=== PATIENT | female | born 2000 | race Caucasian/White ===

== ENCOUNTER → 2025-04-28 11:31 | Emergency (ER) | payer OTHER, SELFPAY ==
[2025-04-28 11:36] VITALS: BP 143/99
[2025-04-28 11:49] LABS: Hematocrit 41.5 % (37.0-47.0); Hemoglobin 13.8 g/dL (12.0-16.0); Mean Corp Hgb Conc. 33.3 g/dL (33.0-37.0); Mean Corpuscular Volume 83.2 fL (81.0-99.0); Nucleated Red Blood Cells % 0 %; Platelet Count 330 10^3/uL (130-400); Red Cell Dist. Width 13.0 % (11.5-14.5)
[2025-04-28 12:07] LABS: HCG, Serum Qualitative Screen Negative
[2025-04-28 12:12] LABS: ALT (SGPT) 24 U/L (0-35); AST (SGOT) 23 U/L (14-36); Albumin 4.6 g/dl (3.5-5.0); Alkaline Phosphatase 126 U/L (38-126); Blood Urea Nitrogen 10 mg/dl (7-17); Calcium 9.7 mg/dl (8.4-10.2); Carbon Dioxide 27 mmol/L (22-30); Chloride 105 mmol/L (98-107); Glucose 111 mg/dl (70-99); Lipase 103 U/L (23-300); Potassium 3.8 mmol/L (3.5-5.1); Sodium 142 mmol/L (135-145); Total Protein 7.9 g/dl (6.3-8.2); eGFR > 60.00
--- NOTE | 2025-04-28 14:36 | ED.GENMED ---
History of Present Illness
General
Chief Complaint: Abdominal Pain
Source: patient
Exam Limitations: none
Time Seen by Provider: 04/28/25 14:08
Nursing documentation reviewed up to this point in time: agreed with
History of Present Illness
History of Present Illness:
25-year-old female with history as noted presents to the ER with mother for evaluation of abdominal pain. Patient reports onset of symptoms this morning and it lasted for a little over an hour and resolved without any particular intervention. She
reports a sharp pain in the epigastrium radiates under the ribs and through to the back. No clear triggering or relieving factors noted. She denies any associated nausea or vomiting. She denies any diarrhea or constipation. She said she had 1
episode of very faint dysuria today but no hematuria or change in frequency. She has not had a fever. She had 1 similar episode that lasted for about an hour and resolved after a bowel movement 2 weeks ago. She initially was seen in urgent care
and was referred to the ER for further assessment. She does make note that she is on semaglutide injections for weight loss but has generally tolerated them well.
Past History
Past History
ED Past Medical History: Psychiatric (A/D)
Social History
Tobacco: Non-smoker
Alcohol: None
Personal: Single
Living: with family
Review of Systems
Review of Systems
All Other Systems: ROS reviewed and negative except as documented in HPI and ROS
Constitutional: Denies fever or chills
Respiratory: Denies trouble breathing
Cardiac: Denies chest pain
ABD/GI: Reports abdominal pain; Denies nausea, vomiting, diarrhea or constipated
: Reports dysuria; Denies frequency or flank pain
Musculoskeletal: Denies edema or neck pain
Neurological: Denies dizzy or headache
Phy Exam
Physical Exam
Physical Exam:
General: Awake, alert, oriented x3; no acute distress
Head: Normocephalic, atraumatic
Eyes: Conjunctiva normal, sclera anicteric
Throat: Airway intact, handling secretions
Neck: Trachea midline, supple without meningismus
Lungs: Clear to auscultation bilaterally, no wheezing, rales, rhonchi
Heart: Regular rate and rhythm, no murmurs, gallops, or rubs
Abd: Soft, non distended, nontender to deep palpation
Back: No CVA tenderness
Neuro: Grossly intact
Skin: No rash in the area of concern
Extremities: Warm and well-perfused
Scores
Heart Failure Risk
Heart Failure Risk Score: Not Applicable
Heart Score for Chest Pain Patients
STEMI patient?: Not applicable
Withdrawal Assessment of Alcohol
Withdrawal Assessment Completed?: Not applicable
Course
Orders/Labs/Results
Orders:
Orders
04/28/25 11:34
Test Result ONCE
04/28/25 11:39
EKG [Electrocardiogram (*1)] Urgent
Reason for Study: Tachycardia
EKG- Treatment ONCE
US Abdomen Complete/Upper Urgent
Comment:
Reason For Exam: upper abdomen pain
04/28/25 11:42
Complete Blood Count/With Diff Urgent
Comprehensive Metabolic Panel Urgent
HCG, Serum Qualitative Screen Urgent
Lipase Urgent
04/28/25 16:06
Urinalysis Reflex To Culture Urgent
Date Specimen was Collected: 04/28/25
Time Specimen was Collected: 15:37
Urine Microscopic Reflex Cult Urgent
Abnormal Lab Results
04/28/25 04/28/25
11:42 16:06
WBC 10.9 H 10^3/uL
(4.8-10.8)
Abs Immat Gran (auto) 0.1 H 10^3/uL
(0-0.05)
Absolute Neuts (auto) 8.7 H 10^3/uL
(1.4-6.5)
Neutrophils % 79.8 H %
(42.2-75.2)
Lymphocytes % 14.5 L %
(20.5-51.1)
Glucose 111 H mg/dl
(70-99)
Urine RBC 3-6 A /HPF
(0-2)
Urine Bacteria (Reflex) Few A
(Negative)
Urine Albumin (Reflex) 1+ A
(Neg - Trace)
04/28/25 11:42
04/28/25 11:42
Vital Signs
Initial and Last Documented VS:
Initial Vital Signs
Temp Pulse Resp BP Pulse Ox
37.1 C 110 18 143/99 99
04/28/25 11:36 04/28/25 11:36 04/28/25 11:36 04/28/25 11:36 04/28/25 11:36
Last Documented Vital Signs
Temp Pulse Resp BP Pulse Ox
37.1 C 110 18 143/99 99
04/28/25 11:36 04/28/25 11:36 04/28/25 11:36 04/28/25 11:36 04/28/25 14:37
MDM/Problems Addressed
Differential Diagnosis Includes:
Gastritis, cholelithiasis, cholecystitis, pancreatitis, nephrolithiasis
MDM/Problems Addressed:
25-year-old female presents after an episode of abdominal pain this morning in the epigastrium radiating under the ribs and through to the back. It resolved after about an hour. She was tachycardic in triage but vital signs normalized by my
assessment. Physical exam is as above. She had labs in triage including a CBC which showed a marginal leukocytosis to 10.9. Chemistry no clinically significant abnormalities. She had notably normal LFTs and a normal lipase. Her hCG is negative.
Will check upper abdominal ultrasound and urinalysis. Will continue to monitor and reassess after the above.
Urinalysis bland. Upper abdominal ultrasound shows cholelithiasis but no signs of acute cholecystitis. Kidneys appear normal with no hydronephrosis. Overall symptoms sound consistent with biliary colic. Patient remains asymptomatic and
clinically stable on reassessment. Long discussion with patient and mother about likely diagnosis of biliary colic and natural course of this. We spoke about follow-up plan including referral to general surgery on an outpatient basis. We spoke
about dietary adjustments. Spoke about return precautions. All questions answered.
*Radiology
Radiology exam reviewed: radiology read reviewed
*Pulse Oximetry
SaO2: 99
Oxygen Mode of Delivery: Room air
Patient hypoxic: no (99%)
*EKG
Interpreted by ED Provider?: Yes
Heart Rate: 113
Rate: tachycardiac
Rhythm: sinus tachycardia
[place]: normal axis
Interval: normal interval
QRS Pattern: normal QRS
Ischemia: no ischemia
*Critical Care Note
Total Time (30-74mins, 75-104mins- exclusive of procedures): Not Applicable
Data Reviewed
Source: patient and family
ED Attending Note
-
Portions of this chart may have been created with voice recognition software.� Occasional wrong word or��sound alike� substitutions may have occurred due to the inherent limitations of voice recognition software.
Discharge Plan
Departure
Patient Disposition: Home (Routine Discharge)
Date of Disposition: 04/28/25
Time of Disposition: 16:22
Patient with high blood pressure during this ER visit?: Yes
Discharge Problem:
Gallstones
Instructions: Gallstones (DC)
Prescriptions:
No Action
cephalexin 500 MG capsule
500 mg PO TID Qty: 15 0RF
doxycycline hyclate 100 MG capsule
100 mg PO Q12 Qty: 11 0RF
Referrals:
Jazmin Copeland CRNP [Family Provider, Family Practice]
Maxim Brown MD [Active, Surgical] - Call in 1-3 days for appt
Activity Restrictions/Additional Instructions:
Thank you for visiting the Emergency Department at [facility].
1. Please schedule a follow up appointment as directed. Call first thing tomorrow morning to make an appointment.
2. If indicated, please take your medications as instructed and indicated on discharge paperwork.
3. If any of your symptoms do not improve, or persist, or become more severe within 6-12 hours, please return to the emergency department for further care.
4. Please return to the emergency department if you develop a headache, neck pain/stiffness, fever greater than 100.4F, chest pain, shortness of breath, persistent nausea, vomiting, slurred speech, difficulty walking, numbness/tingling, weakness,
signs of infection or any other symptoms that are worrisome to you.
Please call [phone] if you have any questions.
Interventions
Interventions:
*Risk Screen - Suicide Last Done: 04/28/25 11:38
*General Assessment Last Done: 04/28/25 11:38
*Neglect/Abuse Screening Last Done: 04/28/25 11:38
*ED COVID-19 Vaccine History Last Done: 04/28/25 11:38
*ED Influenza Vaccine History Last Done: 04/28/25 11:38
Discharge Date and Time
Print Language: RUSSIAN
[2025-04-28 16:14] LABS: Urine Character Clear (Clear)
[2025-04-28 16:18] LABS: Urine White Cell 0-2 /HPF (0-5)
== END | disposition home or self-care (01) ==
LOC: EMR 11:31
PROVIDERS: Emergency Medicine; EMERGENCY PHYSICIAN Emergency Medicine; FAMILY PHYSICIAN Nurse Practitioner
DX: R10.13 Epigastric pain (principal); M54.9 Dorsalgia, unspecified; R30.0 Dysuria; K80.20 Calculus of gallbladder without cholecystitis without obstruction; R03.0 Elevated blood-pressure reading, without diagnosis of hypertension; F41.9 Anxiety disorder, unspecified; F32.A Depression, unspecified
CPT/HCPCS: 99284; 76700; 80053; 81003; 81015; 83690; 84703; 85025; 93005

== ENCOUNTER 2025-05-02 15:04 | Day surgery (SDC) | payer OTHER, SELFPAY ==
[2025-05-02] VITALS (9 sets, daily range): BP systolic 123–142; BP diastolic 51–101; BMI 37.6
[2025-05-02 12:39] LABS: Hematocrit 43.8 % (37.0-47.0); Hemoglobin 14.4 g/dL (12.0-16.0); Mean Corp Hgb Conc. 32.9 g/dL (33.0-37.0); Mean Corpuscular Volume 86.1 fL (81.0-99.0); Nucleated Red Blood Cells % 0 %; Platelet Count 322 10^3/uL (130-400); Red Cell Dist. Width 12.8 % (11.5-14.5)
[2025-05-02 12:54] LABS: HCG, Serum Qualitative Screen Negative
--- NOTE | 2025-05-02 12:58 | ED.GENMED ---
History of Present Illness
General
Chief Complaint: Abdominal Pain
Source: patient and family (Mother)
Exam Limitations: none
Time Seen by Provider: 05/02/25 12:50
Nursing documentation reviewed up to this point in time: agreed with
History of Present Illness
History of Present Illness:
25-year-old female with history as noted presents to the ER for evaluation of abdominal pain. Of note she was seen in the emergency room 04/28/2025 for identical symptoms and was found to have cholelithiasis; she was discharged when symptoms
improved with an outpatient referral to general surgery. Unfortunately since this hospital visit she has been having intermittent severe pains usually triggered by eating. Last night pains were intense to the point that she came to the ER but left
prior to being seen due to the wait and due to the fact that her symptoms resolved. This morning woke up and once again had symptoms and so she came back to the ER for reassessment. She said that when the pain is intense she has nausea and dry
heaves. Has not had a fever. No change in her bowel movements. No urinary symptoms or any other acute issues. She did try to see general surgery as an outpatient but was not able to secure an appointment for a few weeks.
Past History
Past History
ED Past Medical History: Psychiatric (A/D)
Social History
Tobacco: Non-smoker
Alcohol: None
Personal: Single
Living: with family
Review of Systems
Review of Systems
Constitutional: Denies fever or chills
Respiratory: Denies trouble breathing
Cardiac: Denies chest pain
ABD/GI: Reports abdominal pain, nausea and vomiting; Denies diarrhea
: Denies dysuria, frequency or flank pain
Neurological: Denies dizzy or headache
Phy Exam
Physical Exam
Physical Exam:
General: Awake, alert, oriented x3; anxious appearing but in no acute distress
Head: Normocephalic, atraumatic
Eyes: Conjunctiva normal, sclera anicteric
Throat: Airway intact, handling secretions
Neck: Trachea midline, moving freely without pain
Lungs: Breathing comfortably no distress
Heart: Regular rate
Abd: Soft, non distended, minimally tender in the right upper quadrant but no peritoneal signs
Neuro: Grossly intact, ambulatory
Skin: No rash in the area of concern
Extremities: Warm and well-perfused
Scores
Heart Failure Risk
Heart Failure Risk Score: Not Applicable
Heart Score for Chest Pain Patients
STEMI patient?: Not applicable
Withdrawal Assessment of Alcohol
Withdrawal Assessment Completed?: Not applicable
Course
Orders/Labs/Results
Orders:
Orders
05/02/25 12:05
Test Result ONCE
05/02/25 12:10
Comprehensive Metabolic Panel Urgent
HCG, Serum Qualitative Screen Urgent
Lipase Urgent
05/02/25 12:11
Complete Blood Count/With Diff Urgent
05/02/25 12:52
Urinalysis Reflex To Culture Urgent
05/02/25 12:58
Ketorolac [Toradol] 15 mg IV NOW STA
05/02/25 13:00
0.9% Sodium Chloride 500 ml [Nss] 500 ml IV 100 mls/hr
05/02/25 13:05
SURGICAL CONSULT Urgent
Consulting Provider: Thong Harmon
Was physician already notified: Yes
05/02/25 13:51
Morphine Sulfate 4 mg IV NOW STA
Ondansetron Injectable [Zofran] 4 mg IV NOW STA
Abnormal Lab Results
05/02/25
12:11
MCHC 32.9 L g/dL
(33.0-37.0)
05/02/25 12:11
Vital Signs
Initial and Last Documented VS:
Initial Vital Signs
Temp Pulse Resp BP Pulse Ox
36.8 C 93 18 142/101 99
05/02/25 12:05/02/25 12:05/02/25 12:05/02/25 12:05/02/25 12:01
Last Documented Vital Signs
Temp Pulse Resp BP Pulse Ox
36.8 C 93 18 142/101 99
05/02/25 12:05/02/25 12:05/02/25 12:05/02/25 12:05/02/25 12:58
MDM/Problems Addressed
Differential Diagnosis Includes:
Cholelithiasis, cholecystitis, choledocholithiasis, pancreatitis, nephrolithiasis
MDM/Problems Addressed:
25-year-old female returns to the ER for evaluation of abdominal pain. This is her third visit in the past week�was initially seen 04/28 and had ultrasound that showed cholelithiasis. Symptoms resolved and she was referred to surgery as an
outpatient. Returned last night but pain resolved and ultimate left prior to being seen. She now returns this morning again with significant pain. Vitals and exam are as above. Will check repeat labs including a CBC CMP, lipase. Discussed case
with general surgery for consultation. Will treat pain in the meantime. Reassess after the above.
Labs reviewed: CBC unremarkable, hCG negative. Chemistry pending. Patient evaluated by general surgery, they will admit to their service with plan for cholecystectomy.
*Radiology
Radiology exam reviewed: radiology read reviewed
*Pulse Oximetry
SaO2: 99
Oxygen Mode of Delivery: Room air
Patient hypoxic: no (99%)
*Critical Care Note
Total Time (30-74mins, 75-104mins- exclusive of procedures): Not Applicable
Data Reviewed
Review of Other/Old Records Reveals: Labs and Records
Source: patient, records and family (mother)
Patient Management
Discussion with other providers: Frame Opener (Discussed with general surgery)
Escalation/DeEscalation of care consider admission/obs:
Admission indicated
ED Attending Note
-
Portions of this chart may have been created with voice recognition software.� Occasional wrong word or��sound alike� substitutions may have occurred due to the inherent limitations of voice recognition software.
Discharge Plan
Departure
Patient Disposition: Admit
Date of Disposition: 05/02/25
Time of Disposition: 14:12
Admit to doctor: Dr. Harmon
Presentation/result/management discussed w/ accepting MD/DO: General surgeon
Discharge Problem:
Cholelithiasis
Prescriptions:
No Action
cephalexin 500 MG capsule
500 mg PO TID Qty: 15 0RF
doxycycline hyclate 100 MG capsule
100 mg PO Q12 Qty: 11 0RF
Referrals:
Jazmin Copeland CRNP [Family Provider, Family Practice]
Interventions
Interventions:
*Risk Screen - Suicide Last Done: 05/02/25 12:01
*General Assessment Last Done: 05/02/25 12:01
*Neglect/Abuse Screening Last Done: 05/02/25 12:01
*ED COVID-19 Vaccine History Last Done: 05/02/25 13:21
*ED Influenza Vaccine History Last Done: 05/02/25 13:21
NX-Ulopuf-[id number] Assessment Last Done: 05/02/25 13:21
Discharge Date and Time
Print Language: NEPALI
[2025-05-02] MEDS: TORADOL 15 MG IV (13:12)
[2025-05-02] MEDS: NSS 500 IV (13:13)
[2025-05-02] MEDS: ZOFRAN 4 MG IV ×2 (13:55→23:58)
[2025-05-02] MEDS: MORPHINE SULFATE 4 MG IV (13:55)
--- NOTE | 2025-05-02 14:22 | HP.FOC2 ---
Focused History & Physical
Chief Complaint
HPI:
Chief Complaint: Epigastric abdominal pain, nausea
HPI / Indication for Planned Procedure: Patient is a 25-year-old female presenting to the emergency department today secondary to recurrent bouts of epigastric abdominal pain.
Past medical history notable for anxiety/depression, obesity with BMI of 45.6 and she is currently on a compounded GLP-1 injection daily she states that she has lost 70 pounds over the last year.
The patient was in her usual baseline state of health until this past weekend when on Tuesday she began to take note of the acute onset of epigastric abdominal pain radiating to the back and right shoulder blade area. She presented for emergency
department evaluation and was found to have gallstones. Her symptoms improved and she was discharged with outpatient surgical follow-up recommended. Over the last 24 hours she has had 2 recurrent episodes of similar symptoms prompting return to
the emergency department. There has been nausea and anorexia but no vomiting. She has had mild constipation this week but is moving her bowels.
Relevant Past Medical History: Other (Anxiety/depression, obesity with BMI 45)
Relevant Social History: Tobacco Use (E-cigarette)
Relevant Family History: Negative
Relevant Past Surgical History: Positive for ([place] teeth)
Review of Systems
Review of Pertinent Systems: All Systems Negative
Medication
See Medication form for detailed medications: Yes
Medication List (including Herbals & OTC):
Biotin
Julianna 0.25�35 MG�MCG tablet daily
Multivitamin
Venlafaxine ER 225 mg daily
Lamotrigine
Zyrtec
Compounded GLP-1 -last injection yesterday 05/01/2025
Medications Reviewed: Yes
Allergies and Reactions
Patient has Allergies: No
Noted Allergies and Reactions:
Allergy/AdvReac Type Severity Reaction Status Date / Time
No Known Allergies Allergy Verified 05/02/25 12:04
Pertinent Physical Exam
All Other Systems: Negative
Head/Neck: Normal
Lungs: Normal
Heart: Normal
Abdomen: Other (Soft, obese, mild tenderness palpation epigastrium and right upper quadrant. No rebound rigidity or guarding.)
Extremities: Normal
Neurological: Normal
Diagnosis / Assessment
25-year-old female presenting with recurrent acute biliary colic.
Given third episode prompting 3 separate emergency department evaluations over the last 5 days we discussed indications for cholecystectomy at this evaluation which patient and her mother strongly prefer.
Laparoscopic cholecystectomy with possible intraoperative cholangiogram was reviewed in detail including the operative technique utilizing a written diagram/drawing at bedside. We discussed potential operative findings and their management,
alternative nonoperative treatment options, benefits of surgery and potential risks such as but not limited to bleeding, infectious and wound related complications, iatrogenic injury to surrounding viscera, bile duct injury and bile leak. Any of
the patient's or her mother's concerns or questions were fully addressed and written informed consent was obtained.
Plan / Procedure
Patient will be admitted for laparoscopic cholecystectomy and has been added onto the OR schedule; timing pending and availability of the OR
N.p.o.
IV fluids
Cefotetan on-call to the OR
Analgesics and antiemetics as needed
Anesthesia/Sedation to be done by Anesthesia Provider: Yes
--- NOTE | 2025-05-02 14:39 | W.SUR.PREOP ---
Pre-Operative Surgical Note
-
I have examined this patient prior to the performance of the scheduled procedure.
The patient's condition is unchanged from the time of the current History and
Physical and the patient is able to undergo the scheduled procedure.
[2025-05-02 14:52] LABS: ALT (SGPT) 228 U/L (0-35); AST (SGOT) 437 U/L (14-36); Albumin 4.5 g/dl (3.5-5.0); Alkaline Phosphatase 165 U/L (38-126); Blood Urea Nitrogen 10 mg/dl (7-17); Calcium 10.4 mg/dl (8.4-10.2); Carbon Dioxide 26 mmol/L (22-30); Chloride 103 mmol/L (98-107); Glucose 94 mg/dl (70-99); Lipase 245 U/L (23-300); Potassium 3.7 mmol/L (3.5-5.1); Sodium 138 mmol/L (135-145); Total Protein 8.0 g/dl (6.3-8.2); eGFR > 60.00
--- NOTE | 2025-05-02 17:08 | W.IMMPOSTOP ---
Addendum entered and electronically signed by Thong Harmon MD 05/02/25 17:33:
#[id number]
Original Note:
Surgical Immed Post Op Note
-
Primary Surgeon: Thong Harmon MD
Assisting Surgeon: Bryce Juarez
Pre-op Diagnosis: Acute biliary colic
Post-op Diagnosis: Acute biliary colic; choledocholithiasis
Procedure Performed: Laparoscopic cholecystectomy with intraoperative cholangiogram
Anesthesia Type: GETA +0.25% Marcaine with epi
Specimen / Cultures: Gallbladder/none
Estimated Blood Loss: 12 mL
Complications: None immediate
Operative Findings: Gallbladder filled with small gallstones. Physiologically distended. Filmy adhesions. Intraoperative cholangiogram without emptying into the duodenum and meniscus sign at the ampulla suggestive of distal common bile duct
stones. Cholangiocatheter fed under fluoroscopic guidance and advanced distal to ampulla with subsequent emptying of common bile duct. Probable persistent small gallstones but nonobstructive. Gallbladder extracted at epigastric 12 mm trocar site.
Main cystic artery controlled with hemoclips. An additional posterior and anterior branch further distal on the gallbladder body also controlled with clips.
Updated patient's parents postoperatively in the waiting area.
Consulted GI for routine evaluation and possible postoperative ERCP.
Clear liquids
Supportive care
Will cover biliary tree with Zosyn postop given suspicion for choledocholithiasis
Repeat CBC and CMP in a.m.
[2025-05-02] MEDS: DILAUDID 0.25 MG IV ×2 (17:31→18:18)
[2025-05-02] MEDS: NSS 1000 IV (18:09)
--- NOTE | 2025-05-02 18:22 | PTCARENOTE ---
Pt arrived to 2S in bed. Full assessment completed. Nasal cannula maintained. IVF initiated. 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 PRN Dilaudid provided for c/ 6/10 abdominal pain. Pt instructed on diet and to ring for assistance with
ambulation, verbalized understanding. Bed locked and in the lowest position, safety maintained. Oriented to room and call chandrakant dixon at bedside.
[2025-05-02] MEDS: LAMICTAL 25 MG PO (19:55)
[2025-05-02] MEDS: TORADOL 10 MG IV (19:56)
[2025-05-02] MEDS: ZOSYN 50 IV (20:00)
[2025-05-02] MEDS: LOVENOX 40 MG SC (20:00)
[2025-05-02] MEDS: DILAUDID 0.5 MG IV ×2 (21:11→23:16)
[2025-05-02] MEDS: MYLICON 80 MG PO (21:12)
[2025-05-03] VITALS (9 sets, daily range): BP systolic 128–155; BP diastolic 75–99
[2025-05-03] MEDS: ZOSYN 50 IV ×4 (02:15→20:33)
[2025-05-03] MEDS: DILAUDID 0.25 MG IV (02:24)
[2025-05-03] MEDS: NSS 1000 IV ×3 (03:37→21:33)
[2025-05-03] MEDS: DILAUDID 0.5 MG IV ×6 (05:10→22:43)
[2025-05-03] MEDS: MYLICON 80 MG PO ×2 (05:14→16:27)
[2025-05-03] MEDS: COMPAZINE 5 MG IV (05:14)
--- NOTE | 2025-05-03 06:09 | CON.GI ---
Consultation
-
Date/Time Consultation Performed: 05/03/2025
Performing Provider: Clifton Johnson MD
Reason for Consultation: CBD stone
Medical History
Chief Complaint / HPI
Chief Complaint: abdominal pain
History of Present Illness:
The patient is a 25-year-old female past medical history as noted who presented to the emergency room this week with abdominal pain. She was found to have gallstones on imaging. Her LFTs were mildly elevated, though CBD was normal. She had
cholecystectomy yesterday and on intraoperative cholangiogram was noted to have probable distal CBD stones. This morning she is feeling okay, with some incisional tenderness, with some improvement in her gallbladder pain though still has some
persistent. She has no vomiting of some nausea. Denies any fevers or chills overnight.
Past Medical History
Past Medical History: Other (Anxiety, depression, obesity)
Past Surgical History: Cholecystectomy
Social History
Tobacco: Vaping
Alcohol: None
Family History
Family History: Reviewed & Not Pertinent
Allergies / Home Medications
Allergy/AdvReac Type Severity Reaction Status Date / Time
No Known Allergies Allergy Verified 05/02/25 12:04
�Medication �Instructions �Recorded
hydroxyzine HCl 25 mg tablet 25 mg PO DAILYPRN PRN anxiety 05/02/25
ibuprofen 200 mg tablet (Advil) 200 mg PO Q6HPRN PRN mild pain 05/02/25
lamotrigine 25 mg tablet (Lamictal) 25 mg PO DAILY Mental 05/02/25
Health/Anxiety
norgestimate 0.25 mg-ethinyl 1 tab PO DAILY Hormonal Agent 05/02/25
estradiol 0.035 mg tablet (Julianna)
ondansetron HCl 4 mg tablet 4 mg PO Q6HPRN PRN nausea 05/02/25
therapeutic multivitamin 1 tab PO DAILY Supplement 05/02/25
venlafaxine 225 mg tablet,extended 225 mg PO DAILY Mental 05/02/25
release 24 hr Health/Anxiety
Review of Systems
-
All other systems: A 12 pt ROS was Negative except as stated above in HPI
Vital Signs
Temp Pulse Resp BP Pulse Ox
98.8 F 88 17 136/89 95
05/03/25 03:00 05/03/25 03:00 05/03/25 03:00 05/03/25 03:00 05/03/25 03:00
Physical Exam
Exam
General: NAD
HEENT: MMM, anicteric, no lymphadenopathy
Heart: Regular, no murmurs
Lungs: CTA bilaterally
Abdomen: normal bowel sounds, soft, incisions with minimal ecchymosis, though dry and intact, with minimal incisional tenderness, no rebound or guarding, no masses, bruits or ascites
Extremeties: no edema
Skin: no rashes
Results
WBC 6.4 10^3/uL (4.8-10.8) 05/02/25 12:11
Hgb 14.4 g/dL (12.0-16.0) 05/02/25 12:11
Hct 43.8 % (37.0-47.0) 05/02/25 12:11
MCV 86.1 fL (81.0-99.0) 05/02/25 12:11
Plt Count 322 10^3/uL (130-400) 05/02/25 12:11
Absolute Neuts (auto) 4.0 10^3/uL (1.4-6.5) 05/02/25 12:11
Sodium 138 mmol/L (135-145) 05/02/25 12:10
Potassium 3.7 mmol/L (3.5-5.1) 05/02/25 12:10
Chloride 103 mmol/L (98-107) 05/02/25 12:10
Carbon Dioxide 26 mmol/L (22-30) 05/02/25 12:10
BUN 10 mg/dl (7-17) 05/02/25 12:10
Creatinine 0.5 mg/dL (0.6-1.0) L 05/02/25 12:10
Calcium 10.4 mg/dl (8.4-10.2) H 05/02/25 12:10
Total Bilirubin 2.2 mg/dl (0.2-1.3) H 05/02/25 12:10
AST 437 U/L (14-36) H 05/02/25 12:10
ALT 228 U/L (0-35) H 05/02/25 12:10
Alkaline Phosphatase 165 U/L (38-126) H 05/02/25 12:10
Lipase 245 U/L (23-300) 05/02/25 12:10
Diagnostic Image Results:
US:
IMPRESSION: Cholelithiasis. No gallbladder wall thickening or biliary tract dilatation. Negative sonographic Mathias's sign.
Prior GI Procedures:
EGD:
Colonoscopy:
Assessment / Plan
-
1. CBD stone: Noted on intraoperative cholangiogram, overall doing well overnight, no signs of cholangitis. At this point we will await morning labs, plan ERCP today. We discussed risks and benefits including pancreatitis at length.
-
-
Thank you for consultation and allowing me to participate in the patient's care. Please call the land acquisition specialist GI physician during the after hours with any questions or concerns.
[2025-05-03 07:28] LABS: Hematocrit 35.3 % (37.0-47.0); Mean Corp Hgb Conc. 32.3 g/dL (33.0-37.0); Mean Corpuscular Volume 88.5 fL (81.0-99.0); Red Cell Dist. Width 12.9 % (11.5-14.5)
[2025-05-03 08:04] LABS: ALT (SGPT) 212 U/L (0-35); AST (SGOT) 338 U/L (14-36); Albumin 3.5 g/dl (3.5-5.0); Alkaline Phosphatase 157 U/L (38-126); Blood Urea Nitrogen 4 mg/dl (7-17); Calcium 8.4 mg/dl (8.4-10.2); Carbon Dioxide 25 mmol/L (22-30); Chloride 106 mmol/L (98-107); Estimated Creatinine Clearance > 125 ml/min; Glucose 122 mg/dl (70-99); Lipase 1365 U/L (23-300); Potassium 3.6 mmol/L (3.5-5.1); Sodium 136 mmol/L (135-145); Total Protein 6.4 g/dl (6.3-8.2); eGFR > 60.00
--- NOTE | 2025-05-03 08:05 | W.PN.GS2 ---
Today's Communication / Plan
-
NPO for ERCP
Assessment / Plan
-
25 yo female presenting with biliary colic and choledocholithiasis now POD #1 lap delgado with IOC
AFVSS
No leukocytosis
Bilirubin trending up, transaminitis present
Lipase elevated
Plan:
Appreciate gastroenterology, ERCP today
NPO for procedure
Analgesics/antiemetics prn
IVF while NPO
SCDs for VTE ppx
Subjective Data
-
Date of Service: May 03, 2025
Pt seen and examined at bedside with Dr. Harmon. Denies n/v. Some incisional and epigastric discomfort. Feels less pain than she did pre op. Tired today.
Objective Data
-
Intake and Output
05/02/25 05/03/25 05/04/25
06:59 06:59 06:59
Intake Total 200 / 200
Balance 200 / 200
Intake:
IV fluids (Total) 200 / 200
Normosol 200 / 200
Vital Signs
Temp Pulse Resp BP Pulse Ox
98.4 F 82 16 128/75 93
05/03/25 07:00 05/03/25 07:00 05/03/25 07:00 05/03/25 07:00 05/03/25 07:00
Lab Results
05/03/25 06:55
Calcium 10.4 mg/dl (8.4-10.2) H 05/02/25 12:10
Total Bilirubin 2.2 mg/dl (0.2-1.3) H 05/02/25 12:10
AST 437 U/L (14-36) H 05/02/25 12:10
ALT 228 U/L (0-35) H 05/02/25 12:10
Alkaline Phosphatase 165 U/L (38-126) H 05/02/25 12:10
Total Protein 8.0 g/dl (6.3-8.2) 05/02/25 12:10
Albumin 4.5 g/dl (3.5-5.0) 05/02/25 12:10
Physical Exam
-
NAD
ABD soft, nd, minimal upper abdominal tenderness
Incisions with intact glue, well approximated and no erythema
Patient has a verdugo catheter: No
Patient has a central line: No
[2025-05-03] MEDS: LAMICTAL 25 MG PO (13:29)
[2025-05-03] MEDS: EFFEXOR XR 225 MG PO (13:29)
--- NOTE | 2025-05-03 14:06 | CM ---
Patient seen at bedside [address] with parents present. patient states that they live in a raised ranch style home with a full basement and one story home. Patient has no DME, has not needed VN or SNF in the past. Patient PCP is Dr. Copeland and
she uses the [facility] [address] [facility]. Patient plan is for discharge home tomorrow. Patient with no concerns at this time. CM will continue to follow for discharge planning needs.
Plan; home with parents.
[2025-05-03] MEDS: ZOFRAN 4 MG IV ×2 (16:27→22:46)
[2025-05-03] MEDS: LOVENOX 40 MG SC (17:46)
[2025-05-03] MEDS: TORADOL 10 MG IV (17:51)
[2025-05-04] MEDS: NSS IV (00:57)
[2025-05-04] MEDS: ZOSYN 50 IV (01:31)
[2025-05-04] MEDS: TORADOL 10 MG IV (01:36)
[2025-05-04] MEDS: NSS 1000 IV (04:15)
[2025-05-04] MEDS: ROXICODONE 5 MG PO (04:18)
[2025-05-04 07:06] LABS: Hematocrit 35.2 % (37.0-47.0); Hemoglobin 11.1 g/dL (12.0-16.0); Mean Corp Hgb Conc. 31.5 g/dL (33.0-37.0); Mean Corpuscular Volume 88.9 fL (81.0-99.0); Nucleated Red Blood Cells % 0 %; Platelet Count 258 10^3/uL (130-400); Red Cell Dist. Width 13.0 % (11.5-14.5)
[2025-05-04 07:36] LABS: ALT (SGPT) 252 U/L (0-35); AST (SGOT) 237 U/L (14-36); Albumin 3.3 g/dl (3.5-5.0); Alkaline Phosphatase 161 U/L (38-126); Blood Urea Nitrogen 2 mg/dl (7-17); Calcium 8.3 mg/dl (8.4-10.2); Carbon Dioxide 28 mmol/L (22-30); Chloride 109 mmol/L (98-107); Estimated Creatinine Clearance > 125 ml/min; Glucose 93 mg/dl (70-99); Lipase 1850 U/L (23-300); Potassium 3.8 mmol/L (3.5-5.1); Sodium 141 mmol/L (135-145); Total Protein 6.0 g/dl (6.3-8.2); eGFR > 60.00
[2025-05-04] MEDS: EFFEXOR XR 225 MG PO (08:23)
[2025-05-04] MEDS: LAMICTAL 25 MG PO (08:23)
[2025-05-04 08:48] VITALS: BP 140/95
--- NOTE | 2025-05-04 09:21 | W.PN.GI.CBS2 ---
Today's Communication / Plan
-
Please see assessment and plan for details.
Assessment / Plan
-
1. CBD stone: Noted on IOC, now status post ERCP with sphincterotomy and stone removal, doing well. Her lipase was minimally elevated prior to ERCP, likely after intraoperative cholangiogram, no signs of pancreatitis now, tolerating diet, overall
improved LFTs and doing well. At this point we will continue per surgery, will hold on further GI workup for now. We will sign off now, please go back with any further questions.
Subjective
Subjective
Date of Service: May 04, 2025
Patient feeling well, had some minimal nausea after pain medicines, no vomiting, has some incisional pain though no other pain but is overall feeling well, tolerated breakfast this morning.
Objective
Data Reviewed
Laboratory Data:
Laboratory Results
05/04/25 06:56
05/04/25 06:56
Laboratory Results
Total Bilirubin 1.6 mg/dl (0.2-1.3) H D 05/04/25 06:56
AST 237 U/L (14-36) H 05/04/25 06:56
ALT 252 U/L (0-35) H 05/04/25 06:56
Alkaline Phosphatase 161 U/L (38-126) H 05/04/25 06:56
Lipase 1850 U/L (23-300) H* 05/04/25 06:56
Vital Signs and I&O:
Vital Signs
Temp Pulse Resp BP Pulse Ox
97.8 F 82 18 140/95 97
05/04/25 08:48 05/04/25 08:48 05/04/25 08:48 05/04/25 08:48 05/04/25 08:48
I&O
05/03/25 05/04/25 05/05/25
06:59 06:59 05:59
Intake Total 200 / 200 3970 / 3970
Balance 200 / 200 3970 / 3970
Physical Exam
Physical Exam
General: NAD
Abdomen: normal bowel sounds, soft, mild incisional tenderness, no masses or bruits, no ascites
--- NOTE | 2025-05-04 10:02 | W.PN.GS2 ---
Addendum entered and electronically signed by Yung Dai MD 05/04/25 10:44:
Patient seen and examined.
Reports improvement post ERCP. Mild residual pain. Mild nausea noted mostly with narcotic use. Passing flatus, no BM. Ambulating. Voiding. Afebrile
Gen: NAD
Abd: soft, obese, mild tenderness at epigastric incision, ND, non-peritoneal, incisions c/d/i - no erythema, ecchymosis or drainage
Patient is a 25 yo F presenting with biliary colic and choledocholithiasis
POD #2 lap delgado with IOC
PPD #1 ERCP for removal of CBD stones
AFVSS
No leukocytosis
LFT's trending down
Lipase with slight uptrend. Suspect mild pancreatitis secondary to CBD stones, minimal symptoms.
Plan:
-- Appreciate gastroenterology
-- LFD
-- Analgesics/antiemetics PRN
-- DC IVF
-- DVT: Lovenox, SCDs for VTE ppx
-- Dispo pending dietary tolerance and symptoms
Original Note:
Today's Communication / Plan
-
Advance diet
Assessment / Plan
-
25 yo female presenting with biliary colic and choledocholithiasis
POD #2 lap delgado with IOC
PPD #1 ERCP for removal of CBD stones
AFVSS
No leukocytosis
LFT's trending down
Lipase with slight uptrend. Suspect mild pancreatitis secondary to CBD stones, minimal symptoms.
Plan:
Appreciate gastroenterology
Advance to LFD
Analgesics/antiemetics prn
d/c ivf
SCDs for VTE ppx
will follow pain pattern with dietary advancement, tentative d/c later today if tolerating.
Subjective Data
-
Date of Service: May 04, 2025
Pt seen and examined at bedside with Dr. Dai. Some nausea after narcotics. Some discomfort at upper incision, sore with movement. Overall, feeling better than previous. Ambulating in room. Passing flatus with a little cramping. Tolerating
clears.
Objective Data
-
Intake and Output
05/03/25 05/04/25 05/05/25
06:59 06:59 05:59
Intake Total 200 / 200 3970 / 3970
Balance 200 / 200 3970 / 3970
Intake:
Oral fluids 900 / 900
IV fluids (Total) 200 / 200 2970 / 2970
Normosol 200 / 200
IV piggybacks 100 / 100
Other:
Number of approximated MODERATE 4
amounts of urine
Number of approximated LARGE 3
amounts of urine
Vital Signs
Temp Pulse Resp BP Pulse Ox
97.8 F 82 18 140/95 97
05/04/25 08:48 05/04/25 08:48 05/04/25 08:48 05/04/25 08:48 05/04/25 08:48
Lab Results
05/04/25 06:56
05/04/25 06:56
Calcium 8.3 mg/dl (8.4-10.2) L 05/04/25 06:56
Total Bilirubin 1.6 mg/dl (0.2-1.3) H D 05/04/25 06:56
Direct Bilirubin 1.3 mg/dl (0.0-0.4) H 05/04/25 06:56
AST 237 U/L (14-36) H 05/04/25 06:56
ALT 252 U/L (0-35) H 05/04/25 06:56
Alkaline Phosphatase 161 U/L (38-126) H 05/04/25 06:56
Total Protein 6.0 g/dl (6.3-8.2) L 05/04/25 06:56
Albumin 3.3 g/dl (3.5-5.0) L 05/04/25 06:56
Physical Exam
-
NAD
ABD soft, nd, minimal upper abdominal tenderness
Incisions with intact glue, well approximated and no erythema
Patient has a verdugo catheter: No
Patient has a central line: No
[2025-05-04] MEDS: ULTRAM 50 MG PO (10:19)
[2025-05-04 11:57] VITALS: BP 145/89
--- NOTE | 2025-05-04 15:33 | W.DS.TRANS ---
Addendum entered and electronically signed by MAYNOR Burns 05/04/25 16:20:
dictated #[id number]
Original Note:
DC Summary - [employer]
-
Discharge Instructions:
Discharge Diagnosis/Procedures Biliary colic. Choledocholithiasis.
Diet As tolerated,Low Fat
Additional Diets Oily, greasy foods and high fat dairy may cause
loose stools in the first few weeks after
surgery; if this occurs, eat a low fat diet
Activity No strenuous activity
Bathing Restrictions OK to Shower
Instructions:
Stand-Alone Forms:
Changes to Home Medications: No
Discharge Medications:
DC Medications w/original date entered in [facility]
hydroxyzine HCl 25 mg tablet 25 mg PO DAILYPRN PRN anxiety 05/02/25
ibuprofen 200 mg tablet (Advil) 200 mg PO Q6HPRN PRN mild pain 05/02/25
lamotrigine 25 mg tablet (Lamictal) 25 mg PO DAILY Mental Health/Anxiety 05/02/25
norgestimate 0.25 mg-ethinyl estradiol 0.035 mg tablet (Julianna) 1 tab PO DAILY Hormonal Agent 05/02/25
ondansetron HCl 4 mg tablet 4 mg PO Q6HPRN PRN nausea 05/02/25
therapeutic multivitamin 1 tab PO DAILY Supplement 05/02/25
venlafaxine 225 mg tablet,extended release 24 hr 225 mg PO DAILY Mental Health/Anxiety 05/02/25
acetaminophen 325 mg tablet 650 mg (2 x 325 mg) PO Q4HPRN PRN mild pain #1 tab 05/04/25
oxycodone 5 mg tablet 5 mg PO Q4HPRN PRN breakthrough/severe pain #12 tabs 05/04/25
Home Medication Changes
Pending Results: No
[2025-05-04 16:18] VITALS: BP 138/89
== END 2025-05-04 17:00 | disposition home or self-care (01) ==
LOC: SDS 15:04
PROVIDERS: Student in an Organized Health Care Education/Training Program; ATTENDING PHYSICIAN Surgery; CONSULT PHYSICIAN Internal Medicine Gastroenterology; EMERGENCY PHYSICIAN Emergency Medicine; FAMILY PHYSICIAN Nurse Practitioner
DX: K80.62 Calculus of gallbladder and bile duct with acute cholecystitis without obstruction (principal)
CPT/HCPCS: 47563; 74300; 74330; 76000; 80053; 82248; 83690; 84703; 85025; 85027; 88304; 96374; 96375; 99285; A4300; C1769